=== PATIENT | female | born 1935 | race Asian ===

== ENCOUNTER 2023-01-12 11:07 | Day surgery (SDC) | payer OTHER ==
[2023-01-12] VITALS (26 sets, daily range): BP systolic 97–170; BP diastolic 52–76
[~2023-01-12] VITALS: Ht 154.9 cm; Wt 57.8 kg
[~2023-01-12 11:07] MED LIST: AMLO5 PO; CALCIUM CARBON500 M1 PO; ERGO400 PO; OXYB5 PO; PRAV20 PO; SERT25 PO
[2023-01-12] MEDS ORDERED: ACET325 PO (11:54)
--- NOTE | 2023-01-12 17:30 | NUR ---
PT ATTEMPTING TO STAND ON SIDE OF BED WITH ASSIST AND WALKER. PT UNABLE TO STAND AT THIS TIME WITH WALKER. PT DENIES DIZZINESS,LIGHTHEADEDNESS. PT AWAKE, ORIENTED. FAMILY AT BEDSIDE. DR ROBERTS TO BEDSIDE REPORTS PT MAY USE FOREARM TO REST ON WALKER TO SEE IF THAT WILL HELP HER BE ABLE TO STAND WITH WALKER THIS IS WHAT SHE SAYS SHE WAS DOING BEFORE HER PROCEDURE AT HOME. FAMILY AT BEDSIDE.
--- NOTE | 2023-01-12 18:00 | NUR ---
PT CONTINUE TO BE UNABLE TO STAND UP WITH WALKER, EVEN WITH ARM ATTACHMENT. PT REPORTS FEELING WEAK. DR ROBERTS TO BEDSIDE. REPORTS PT TO BE EXTENDED RECOVERY. FERTILIZER LOADER K.G. HAS BEEN UPDATED ON PT'S STATUS T/O STAY HERE IN [facility].
--- NOTE | 2023-01-12 18:43 | NUR ---
PT ROOM TO BE 215,REPORTED TO NOT BE CLEAN YET.PT BEEN ASSISTED WITH ADL'S PRN. PT TOLERATING PO. DENIES PAIN. PAS BEEN PLACED. PT HAS ICE TO RIGHT ARM WHICH IS ELEVATED ON PILLOW. PT REPORTS COMFORTABLE AND HAS NO PAIN AT THIS TIME. PT VSS. LS CLEAR. PT HAS HR IN 50'S.
--- NOTE | 2023-01-12 19:31 | NUR ---
REPORT GIVEN TO Carlos ELMORE. PT A/O. DENIES PAIN, NAUSEA, SOB,CP. PT VSS. PT ON ROOM AIR. PT RIGHT ARM ELEVATED ON PILLOWS. PT HAS ICE IN PLACE TO RIGHT WRIST/FOREARM. PT FINGERS WARM. CAP REFILL BRISK. PT ON ROOM AIR. PAS IN PLACE TO BLE. FAMILY AWARE OF PT BEING ADMITTED FOR EXTENED RECOVERY AND GOING TO ROOM 215. PT HAS HER DENTURES/PARTIAL IN PLACE. BELONGINGS BEING SENT TO ROOM WELL. PT TOLERATING PO.
--- NOTE | 2023-01-12 19:37 | NUR ---
PT TO ROOM 215 BY DEVAN. REPORT BEEN GIVEN.
--- NOTE | 2023-01-13 04:08 | NUR ---
SHIFT SUMMARY PATIENT HAD NO ACUTE EVENTS THIS SHIFT, TOLERATING PO INTAKE, RESTING T/O NIGHT. VOIDING USING BSC. 2 PERSON TRANSFER WITH GB, PATIENT HAS UNSTEADY GAIT. DENIES PAIN, HAS R WRIST ELEVATED ON PILLOWS, ICE TO R WRIST. FINGERS WITH BRUISING AND SWELLING. SOME SENSATION TO FINGERS STILL NUMB PER PATIENT., PATIENT HAS MEPILEX PLACED ON BUTTOCK FOR BLANCHABLE REDDNESS AND PREVENTION. CALL LIGHT IS IN REACH, BED ALARM PLACED FOR SAFETY.
[2023-01-13 05:21] VITALS: BP 132/65
[2023-01-13 07:20] VITALS: BP 128/58
[2023-01-13 14:18] VITALS: BP 119/54
--- NOTE | 2023-01-13 16:35 | NUR ---
SHIFT SUMMARY: POD 1 RIGHT WRIST ORIF PATIENT IS A&OX4. SHE IS A 2-3 PERSON SBA WITH OLAYINKA WALKER AND GAIT BELT. HER RIGHT WRIST HAS A MYRON WRAP AND CAST THAT IS C/D/I. SHE REPORTS SLIGHT NUMBNESS BUT IS ABLE TO WIGGLE FINGERS. SHE IS TOLERATING PO INTAKE AND IS VOIDING IN A BSC. PHYSICAL THERAPY AND OCCUPATIONAL THERAPY WORKED WITH HER TODAY. PATIENT IS LAYING IN THE RECLINER CHAIR WITH FEET UP AND CALL LIGHT IN REACH. PAIN IS MANAGED WITH PO TYLENOL. THE PLAN IS TO BE DISCHARGED HOME WITH HOME HEALTH TOMORROW AND TO HAVE SUPPLIES SENT TO HER HOME TOMORROW WELL.
[2023-01-13 20:21] VITALS: BP 127/55
[2023-01-14 04:45] VITALS: BP 115/63
--- NOTE | 2023-01-14 05:30 | NUR ---
SHIFT SUMMARY. PT RESTED WITH EYES CLOSED THIS SHIFT. PT USES CALL LIGHT APPROPRIATLY TO USE THE BEDSIDE COMMODE. PT A TWO PERSON ASSIST WITH VERBAL CUING. A&O X4. PT IS POD2 FOR RIGHT WRIST ORIF, SPLINT INTACT. PAIN CONTROLLED WITH PO TYLENOL. SENSATION IN RIGHT HAND FINGERS HAS IMPROVED T/O SHIFT, DENIES NUMBNESS OR TINGLING. SCUDS IN PLACE ON BLE. PT REPORTS FLATUS BUT STATES SHE HAS NOT HAD A BM SINCE 01/10/23. PT ON COLACE. PT HAS SORES ON HER BOTTOM THAT ARE COVERED WITH MEPELEX THAT IS CLEAN, DRY,AND INTACT. PT HAS HAD BRADYCARDIA THIS SHIFT. ASSESSED AFTER BOTH EPISODES AND PT HAD NO CHEST PAIN OR SOB. EDUCATED PT TO USE CALL LIGHT IF ANY SYMPTOMS DEVELOP FOR REASSESSMENT. PT VERBALIZED UNDERSTANDING.
[2023-01-14 07:12] VITALS: BP 136/59
[2023-01-14 15:19] VITALS: BP 114/54
--- NOTE | 2023-01-14 15:28 | NUR ---
SHIFT SUMMARY PT WORKED WITH PT, STILL REQUIRES A LOT OF PROMPTS AND REMINDING FOR TX. UNSTEADY AT TIMES WITH SHUFFLING GAIT. PLAN TO DC HOME TOMORROW IF PT CONTINUES TO REGAIN STRENGTH WITH AMBULATION.
[2023-01-14 19:57] VITALS: BP 118/61
[2023-01-15 03:36] VITALS: BP 167/68
[2023-01-15 07:30] VITALS: BP 145/66
--- NOTE | 2023-01-15 07:30 | NUR ---
SHIFT SUMMARY NO ACUTE CHANGES NOTED THROUGH THE NIGHT, PT IS A&O X4, VSS, ON RA, MINIMAL PAIN, CIRC WNL, BRUISING PRESENT, PT IS A SBA TO THE BATHROOM, VOIDING WNL, REPORT GIVEN TO DAY RN, RESTING QUIETLY IN BED, CALL LIGHT IN REACH
[2023-01-15 15:19] VITALS: BP 111/69
--- NOTE | 2023-01-15 18:33 | NUR ---
DISCHARGE PT DISCHARGED HOME FROM UNIT AT APROX 1700. PT GIVEN WRITTEN AND VERBAL DC INSTRUCTIONS AND VERBALIZED UNDERSTANDING OF INSTRUCTIONS. WC TO CAR
== END 2023-01-15 17:27 | disposition home or self-care (01) ==
LOC: ORSCMMR 11:07 → ORD 12:30 → SURS 19:39 → ORSCMMR 01-15 17:27
PROVIDERS: Orthopaedic Surgery
PROC: 0PSH04Z Reposition Right Radius with Internal Fixation Device, Open Approach (ICD-10-PCS; principal; 2023-01-12 12:30)
DX: S52.571A Other intraarticular fracture of lower end of right radius, initial encounter for closed fracture (principal); I10 Essential (primary) hypertension; E78.5 Hyperlipidemia, unspecified; Z87.891 Personal history of nicotine dependence; F32.A Depression, unspecified; Z79.899 Other long term (current) drug therapy
CPT/HCPCS: 97110; 97116; 97162; 97166; 97530; A9270; C1713; J0690; J1100; J2405; J2704; J3010; J7120

== ENCOUNTER → 2023-09-13 | Outpatient (CLI) | payer OTHER ==
[~2023-09-13] MED LIST changes: +ACET325 PO
[2023-09-13 16:46] LABS: BASOPHILS ABSOLUTE AUTO 0.01 K/mm3 (0.00-0.23); BASOPHILS PERCENT AUTO 0 % (0-2); EOSINOPHILS ABSOLUTE AUTO 0.03 K/mm3 (0.00-0.68); EOSINOPHILS PERCENT AUTO 1 % (0-6); Hematocrit 38.3 % (33.0-51.0); Hemoglobin 12.3 g/dL (11.5-16.0); IMMATURE GRAN ABSOLUTE AUTO 0.01 K/mm3 (0.00-0.10); IMMATURE GRAN PERCENT AUTO 0 % (0-1); LYMPHOCYTES ABSOLUTE AUTO 2.12 K/mm3 (0.84-5.20); LYMPHOCYTES PERCENT AUTO 47 % (21-46); MONOCYTES ABSOLUTE AUTO 0.23 K/mm3 (0.16-1.47); MONOCYTES PERCENT AUTO 5 % (4-13); Mean Corpuscular HGB 31.9 pg (26.0-34.0); Mean Corpuscular HGB Conc 32.1 g/dL (31.5-36.5); Mean Corpuscular Volume 99 fL (80-100); Mean Platelet Volume 10.2 fL (9.1-12.4); NEUTROPHILS ABSOLUTE AUTO 2.14 K/mm3 (1.96-9.15); NEUTROPHILS PERCENT AUTO 47 % (41-73); Platelet Count 206 K/mm3 (150-400); RDW Coefficient Variation 13.4 % (11.7-14.2); RDW Standard Deviation 48.9 fL (35.1-46.3); Red Blood Cell Count 3.86 M/mm3 (3.80-5.20); White Blood Cell Count 4.54 K/mm3 (4.00-11.30)
[2023-09-13 17:12] LABS: Alanine Aminotransfer (ALT/SGP 22 U/L (12-78); Albumin, Blood 3.9 g/dL (3.4-5.0); Albumin/Globulin Ratio 0.9 (0.8-1.8); Alk Phos 56 U/L (50-136); Anion Gap 7 mmol/L (3-11); Aspartate Aminotrans (AST/SGOT 20 U/L (12-37); Bilirubin, Total 0.5 mg/dL (0.1-1.0); Blood Urea Nitrogen 25 mg/dL (8-24); CHOL/HDL RATIO 3.3; CO2, Blood 28 mmol/L (21-32); Calcium, Blood 9.8 mg/dL (8.5-10.1); Chloride, Blood 108 mmol/L (98-108); Cholesterol 189 mg/dL (50-200); Globulin, Blood 4.3 g/dL (2.2-4.0); Glucose, Blood 139 mg/dL (70-99); HDL Cholesterol 57 mg/dL (>39); LDL/HDL RATIO 1.8; Low Density Lipoprotein Chol 103 mg/dL (0-110); Potassium, Blood 4.3 mmol/L (3.5-5.5); Sodium, Blood 139 mmol/L (136-145); Total Protein, Blood 8.2 g/dL (6.4-8.2); Triglycerides 146 mg/dL (30-160); Very Low Density Lipoprot Chol 29 mg/dL (6-32)
[2023-09-13 17:22] LABS: Bun/Creatinine Ratio 27.7 (12.0-20.0); Glomerular Filtration Rate 63 (60-)
== END | disposition home or self-care (01) ==
LOC: LAB EV 16:14 → LAB SHORT 16:14
PROVIDERS: Family Medicine
DX: Z51.81 Encounter for therapeutic drug level monitoring (principal); Z79.899 Other long term (current) drug therapy
CPT/HCPCS: 80053; 80061; 82306; 84443; 85025

== ENCOUNTER → 2023-11-03 | Outpatient (CLI) | payer OTHER | LOC: LAB 18:28 → LAB SHORT 18:28 | DX: N30.01 Acute cystitis with hematuria (principal) | CPT/HCPCS: 87077; 87086; 87186 ==

== ENCOUNTER 2024-01-15 22:52 | Emergency (ER) | payer OTHER ==
[~2024-01-15] VITALS: Ht 154.9 cm; Wt 57.6 kg
[2024-01-15 23:31] LABS: BASOPHILS ABSOLUTE AUTO 0.01 K/mm3 (0.00-0.23); BASOPHILS PERCENT AUTO 0 % (0-2); EOSINOPHILS ABSOLUTE AUTO 0.05 K/mm3 (0.00-0.68); EOSINOPHILS PERCENT AUTO 1 % (0-6); Hematocrit 38.3 % (33.0-51.0); IMMATURE GRAN PERCENT AUTO 0 % (0-1); LYMPHOCYTES ABSOLUTE AUTO 2.55 K/mm3 (0.84-5.20); LYMPHOCYTES PERCENT AUTO 47 % (21-46); MONOCYTES PERCENT AUTO 7 % (4-13); Mean Corpuscular HGB 32.5 pg (26.0-34.0); Mean Corpuscular HGB Conc 31.3 g/dL (31.5-36.5); Mean Corpuscular Volume 104 fL (80-100); NEUTROPHILS PERCENT AUTO 44 % (41-73); Platelet Count 165 K/mm3 (150-400); RDW Coefficient Variation 12.9 % (11.7-14.2); RDW Standard Deviation 49.4 fL (35.1-46.3); Red Blood Cell Count 3.69 M/mm3 (3.80-5.20); White Blood Cell Count 5.41 K/mm3 (4.00-11.30)
[2024-01-15] MEDS ORDERED: Morphine Sulfate 4 MG/1 ML Injection IV ONE (23:40)
[2024-01-15 23:52] LABS: Albumin, Blood 3.8 g/dL (3.4-5.0); Albumin/Globulin Ratio 0.9 (0.8-1.8); Bilirubin, Total 0.3 mg/dL (0.1-1.0); Bun/Creatinine Ratio 35.3 (12.0-20.0); Calcium, Blood 9.5 mg/dL (8.5-10.1); Creatinine, Blood 0.71 mg/dL (0.40-1.00); Globulin, Blood 4.1 g/dL (2.2-4.0); Potassium, Blood 4.1 mmol/L (3.5-5.5); Total Protein, Blood 7.9 g/dL (6.4-8.2)
[2024-01-16] MEDS ORDERED: RX Prepack 6 Tabs Oxycodone 5mg UD ONE (00:45)
[2024-01-16 01:00] VITALS: BP 135/76
== END 2024-01-16 01:10 | disposition home or self-care (01) ==
LOC: ER 22:52
PROVIDERS: Emergency Medicine
DX: I44.0 Atrioventricular block, first degree (principal); S52.532A Colles' fracture of left radius, initial encounter for closed fracture; W18.30XA Fall on same level, unspecified, initial encounter; E78.5 Hyperlipidemia, unspecified; I10 Essential (primary) hypertension; F32.A Depression, unspecified; Z79.899 Other long term (current) drug therapy; Z91.041 Radiographic dye allergy status
CPT/HCPCS: 25605; 73100; 80053; 85025; 93005; 93010; 96374-59; 99284-25; A9270; J2270

== ENCOUNTER 2024-01-19 06:15 | Day surgery (SDC) | payer OTHER ==
[~2024-01-19] VITALS: Ht 154.9 cm; Wt 55.5 kg
[2024-01-19] MEDS ORDERED: FentaNYL Citrate 50 MCG/ML 2 ML Injection ONE (06:59)
[2024-01-19] MEDS ORDERED: Midazolam HCl 1MG / ML 2ML Vial ONE (06:59)
[2024-01-19] MEDS ORDERED: Lactated Ringer's 1,000 ML IV ONE ×2 (07:04→08:26)
--- NOTE | 2024-01-19 07:04 | NUR ---
01/19/24 0704 Beatrice Scott CALL LIGHT WITHIN REACH. FAMILY AT BEDSIDE
[2024-01-19] MEDS ORDERED: Ropivacaine 0.5% HCL/PF 5 MG/ML 30ML Vial ONE (07:09)
[2024-01-19] MEDS ORDERED: Bupivacaine 0.5% HCl 5 MG/ML 30MLVIAL ONE (07:15)
[2024-01-19] MEDS ORDERED: propofoL 20 ML IV ONE (07:34)
[2024-01-19] MEDS ORDERED: NS 50 ML IV ONE (07:38)
[2024-01-19] MEDS ORDERED: CeFAZolin Sodium 2,000 MG VIAL ONE (07:38)
[2024-01-19] MEDS ORDERED: ePHEDrine Sulfate 50 MG/ML 1ML Injection ONE (07:55)
--- NOTE | 2024-01-19 08:11 | NUR ---
01/19/24 0811 Deanna Vu SCABBED CLOSED ABRASION NOTED BY RN AND DOCTOR ON LEFT WRIST DURING PREP. BRUSING ON LEFT WRIST NOTED WELL.
[2024-01-19] MEDS ORDERED: Ondansetron HCl 2 MG / ML 2ML Vial ONE (09:08)
[2024-01-19] MEDS ORDERED: Dexamethasone Sod Phos 10 MG/ML 1ML VIAL ONE (09:08)
[2024-01-19 10:00] VITALS: BP 129/69
== END 2024-01-19 10:40 | disposition home or self-care (01) ==
LOC: ORSCSDS 06:15
PROVIDERS: Orthopaedic Surgery
PROC: 0PSJ04Z Reposition Left Radius with Internal Fixation Device, Open Approach (ICD-10-PCS; principal; 2024-01-19 07:30)
DX: S52.572A Other intraarticular fracture of lower end of left radius, initial encounter for closed fracture (principal); I10 Essential (primary) hypertension; Z79.899 Other long term (current) drug therapy; Z87.891 Personal history of nicotine dependence
CPT/HCPCS: C1713; J0690; J1100; J2250; J2405; J2704; J2795; J3010; J7120

== ENCOUNTER → 2024-03-26 | Outpatient (CLI) | payer OTHER ==
[2024-03-26 18:07] LABS: Magnesium, Blood 2.7 mg/dL (1.6-2.4)
== END ==
LOC: LAB SHORT 15:15 → LAB 15:15
PROVIDERS: Family Medicine
DX: R73.9 Hyperglycemia, unspecified (principal); E78.2 Mixed hyperlipidemia; E53.8 Deficiency of other specified B group vitamins
CPT/HCPCS: 82607; 82746; 83735

== ENCOUNTER → 2024-07-11 | Outpatient (CLI) | payer OTHER ==
[2024-07-11 17:34] LABS: Bacterial Vaginosis PCR Negative (NEGATIVE); Candida Group, PCR NOT DETECTED (NOT DETECT); Candida glabrata-krusei, PCR NOT DETECTED (NOT DETECT)
== END ==
LOC: LAB 14:26 → LAB SHORT 14:26
PROVIDERS: Student in an Organized Health Care Education/Training Program
DX: R30.0 Dysuria (principal)
CPT/HCPCS: 81515

== ENCOUNTER → 2024-07-15 | Outpatient (CLI) | payer OTHER | LOC: LAB 14:47 → LAB SHORT 14:47 | DX: R30.0 Dysuria (principal) | CPT/HCPCS: 87086 ==

== ENCOUNTER → 2024-09-17 | Outpatient (CLI) | payer OTHER ==
[2024-09-17 16:40] LABS: BASOPHILS ABSOLUTE AUTO 0.02 K/mm3 (0.00-0.23); BASOPHILS PERCENT AUTO 1 % (0-2); EOSINOPHILS ABSOLUTE AUTO 0.03 K/mm3 (0.00-0.68); EOSINOPHILS PERCENT AUTO 1 % (0-6); Hematocrit 39.3 % (33.0-51.0); Hemoglobin 12.4 g/dL (11.5-16.0); IMMATURE GRAN ABSOLUTE AUTO 0.01 K/mm3 (0.00-0.10); IMMATURE GRAN PERCENT AUTO 0 % (0-1); LYMPHOCYTES ABSOLUTE AUTO 1.95 K/mm3 (0.84-5.20); LYMPHOCYTES PERCENT AUTO 45 % (21-46); MONOCYTES ABSOLUTE AUTO 0.33 K/mm3 (0.16-1.47); MONOCYTES PERCENT AUTO 8 % (4-13); Mean Corpuscular HGB 31.8 pg (26.0-34.0); Mean Corpuscular HGB Conc 31.6 g/dL (31.5-36.5); Mean Corpuscular Volume 101 fL (80-100); Mean Platelet Volume 9.6 fL (9.1-12.4); NEUTROPHILS ABSOLUTE AUTO 1.96 K/mm3 (1.96-9.15); NEUTROPHILS PERCENT AUTO 46 % (41-73); Platelet Count 224 K/mm3 (150-400); RDW Coefficient Variation 13.2 % (11.7-14.2); RDW Standard Deviation 49.1 fL (35.1-46.3)
[2024-09-17 16:41] LABS: Alanine Aminotransfer (ALT/SGP 21 U/L (12-78); Albumin, Blood 3.8 g/dL (3.4-5.0); Albumin/Globulin Ratio 0.8 (0.8-1.8); Alk Phos 70 U/L (50-136); Anion Gap 10 mmol/L (3-11); Aspartate Aminotrans (AST/SGOT 18 U/L (12-37); Bilirubin, Total 0.4 mg/dL (0.1-1.0); Blood Urea Nitrogen 26 mg/dL (8-24); Bun/Creatinine Ratio 36.2 (12.0-20.0); CHOL/HDL RATIO 3.5; CO2, Blood 29 mmol/L (21-32); Calcium, Blood 9.3 mg/dL (8.5-10.1); Chloride, Blood 106 mmol/L (98-108); Cholesterol 171 mg/dL (50-200); Creatinine, Blood 0.72 mg/dL (0.40-1.00); Globulin, Blood 4.7 g/dL (2.2-4.0); Glomerular Filtration Rate 81 (60-); Glucose, Blood 89 mg/dL (70-99); HDL Cholesterol 49 mg/dL (>39); LDL/HDL RATIO 1.6; Low Density Lipoprotein Chol 80 mg/dL (0-110); Magnesium, Blood 2.7 mg/dL (1.6-2.4); Potassium, Blood 4.6 mmol/L (3.5-5.5); Sodium, Blood 140 mmol/L (136-145); Total Protein, Blood 8.5 g/dL (6.4-8.2); Triglycerides 212 mg/dL (30-160); Very Low Density Lipoprot Chol 42 mg/dL (6-32)
== END | disposition home or self-care (01) ==
LOC: LAB SHORT 11:30 → LAB 11:30
PROVIDERS: Family Medicine
DX: E78.2 Mixed hyperlipidemia (principal); I10 Essential (primary) hypertension; Z79.899 Other long term (current) drug therapy
CPT/HCPCS: 80053; 80061; 82306; 83735; 85025

== ENCOUNTER 2025-01-27 13:20 | Emergency (ER) | payer OTHER ==
[~2025-01-27] VITALS: Ht 154.9 cm; Wt 61.7 kg
[2025-01-27 14:28] LABS: BASOPHILS ABSOLUTE AUTO 0.01 K/mm3 (0.00-0.23); BASOPHILS PERCENT AUTO 0 % (0-2); EOSINOPHILS ABSOLUTE AUTO 0.01 K/mm3 (0.00-0.68); EOSINOPHILS PERCENT AUTO 0 % (0-6); Hematocrit 38.0 % (33.0-51.0); Hemoglobin 12.1 g/dL (11.5-16.0); IMMATURE GRAN ABSOLUTE AUTO 0.03 K/mm3 (0.00-0.10); IMMATURE GRAN PERCENT AUTO 0 % (0-1); LYMPHOCYTES ABSOLUTE AUTO 1.63 K/mm3 (0.84-5.20); LYMPHOCYTES PERCENT AUTO 19 % (21-46); MONOCYTES ABSOLUTE AUTO 0.54 K/mm3 (0.16-1.47); MONOCYTES PERCENT AUTO 6 % (4-13); Mean Corpuscular HGB Conc 31.8 g/dL (31.5-36.5); Mean Corpuscular Volume 101 fL (80-100); NEUTROPHILS ABSOLUTE AUTO 6.59 K/mm3 (1.96-9.15); NEUTROPHILS PERCENT AUTO 75 % (41-73); NRBC ABSOLUTE 0.00 K/mm3 (0.00-0.02); NRBC Auto 0.0 /100 WBC (0.0-0.2); Platelet Count 194 K/mm3 (150-400); RDW Coefficient Variation 13.6 % (11.7-14.2); RDW Standard Deviation 51.2 fL (35.1-46.3)
[2025-01-27 14:54] LABS: Alanine Aminotransfer (ALT/SGP 16.0 U/L (12-78); Albumin, Blood 3.6 g/dL (3.4-5.0); Albumin/Globulin Ratio 0.8 (0.8-1.8); Anion Gap 9.0 mmol/L (3-11); Aspartate Aminotrans (AST/SGOT 18.0 U/L (12-37); Bilirubin, Total 0.6 mg/dL (0.1-1.0); Blood Urea Nitrogen 23.0 mg/dL (8-24); CO2, Blood 26.0 mmol/L (21-32); Calcium, Blood 9.0 mg/dL (8.5-10.1); Chloride, Blood 105.0 mmol/L (98-108); Creatinine, Blood 0.78 mg/dL (0.40-1.00); Globulin, Blood 4.4 g/dL (2.2-4.0); Glucose, Blood 127.0 mg/dL (70-99); Potassium, Blood 4.4 mmol/L (3.5-5.5); Sodium, Blood 136.0 mmol/L (136-145); Total Protein, Blood 8.0 g/dL (6.4-8.2)
[2025-01-27 16:25] LABS: Source, Urine Clean Catch
[2025-01-27 16:29] LABS: Bilirubin, Urine Neg (Neg); Color, Urine Yellow (P-Yellow); Glucose Qualitative, Urine Neg (Neg); Ketones, Urine 1+ (Neg); Leukocyte Esterase, Urine 3+ (Neg); Protein, Urine 3+ (Neg); Specific Gravity, Urine 1.015 (1.003-1.022); Urobilinogen, Urine NORM (Normal)
[2025-01-27 16:57] LABS: Red Blood Cells, Urine TNTC /hpf (0-2); White Blood Cells, Urine TNTC /hpf (0-5)
[2025-01-27] MEDS ORDERED: CEFP200 PO (18:17)
[2025-01-27 19:11] VITALS: BP 131/64
== END 2025-01-27 19:35 ==
LOC: ER 13:20
PROVIDERS: Student in an Organized Health Care Education/Training Program
DX: N39.0 Urinary tract infection, site not specified (principal); K56.49 Other impaction of intestine
CPT/HCPCS: 74176; 80053; 81001; 83690; 85025; 87077; 87086; 87186; 93005; 93010; 99284-25; A9270

== ENCOUNTER → 2025-04-08 | Outpatient (CLI) | payer OTHER ==
[~2025-04-08] MED LIST changes: +CEFP200 PO
[2025-04-08 18:50] LABS: BASOPHILS ABSOLUTE AUTO 0.02 K/mm3 (0.00-0.23); BASOPHILS PERCENT AUTO 1 % (0-2); EOSINOPHILS ABSOLUTE AUTO 0.05 K/mm3 (0.00-0.68); EOSINOPHILS PERCENT AUTO 1 % (0-6); Hematocrit 41.0 % (33.0-51.0); Hemoglobin 12.9 g/dL (11.5-16.0); IMMATURE GRAN ABSOLUTE AUTO 0.01 K/mm3 (0.00-0.10); IMMATURE GRAN PERCENT AUTO 0 % (0-1); LYMPHOCYTES ABSOLUTE AUTO 1.78 K/mm3 (0.84-5.20); LYMPHOCYTES PERCENT AUTO 41 % (21-46); MONOCYTES ABSOLUTE AUTO 0.35 K/mm3 (0.16-1.47); MONOCYTES PERCENT AUTO 8 % (4-13); Mean Corpuscular HGB Conc 31.5 g/dL (31.5-36.5); Mean Corpuscular Volume 99 fL (80-100); NEUTROPHILS ABSOLUTE AUTO 2.13 K/mm3 (1.96-9.15); NEUTROPHILS PERCENT AUTO 49 % (41-73); NRBC ABSOLUTE 0.00 K/mm3 (0.00-0.02); NRBC Auto 0.0 /100 WBC (0.0-0.2); Platelet Count 233 K/mm3 (150-400); RDW Coefficient Variation 12.8 % (11.7-14.2); RDW Standard Deviation 46.6 fL (35.1-46.3)
[2025-04-08 20:44] LABS: Alanine Aminotransfer (ALT/SGP 24.0 U/L (12-78); Albumin, Blood 3.5 g/dL (3.4-5.0); Albumin/Globulin Ratio 0.7 (0.8-1.8); Anion Gap 7.0 mmol/L (3-11); Aspartate Aminotrans (AST/SGOT 21.0 U/L (12-37); Bilirubin, Total 0.4 mg/dL (0.1-1.0); Blood Urea Nitrogen 25.0 mg/dL (8-24); CO2, Blood 30.0 mmol/L (21-32); Calcium, Blood 9.3 mg/dL (8.5-10.1); Chloride, Blood 101.0 mmol/L (98-108); Creatinine, Blood 0.66 mg/dL (0.40-1.00); Globulin, Blood 4.9 g/dL (2.2-4.0); Glucose, Blood 100.0 mg/dL (70-99); Potassium, Blood 4.2 mmol/L (3.5-5.5); Sodium, Blood 134.0 mmol/L (136-145); Thyroid Stimulating Hormone 0.771 uIU/mL (0.360-4.800); Total Protein, Blood 8.4 g/dL (6.4-8.2)
== END ==
LOC: LAB SHORT 17:58 → LAB 17:58
PROVIDERS: General Practice
DX: R73.03 Prediabetes (principal); R53.82 Chronic fatigue, unspecified
CPT/HCPCS: 80053; 83036; 84443; 85025